=== PATIENT | female | born 1945 | race Caucasian/White ===

== ENCOUNTER → 2020-11-03 | Outpatient (CLI) | payer MEDICARE | LOC: LAB 07:50 | PROVIDERS: ATTEND Internal Medicine Interventional Cardiology | DX: Z20.822 Contact with and (suspected) exposure to COVID-19 (principal) | CPT/HCPCS: U0002 ==

== ENCOUNTER 2023-11-11 12:24 | Emergency (ER) | payer MEDICARE ==
[~2023-11-11] VITALS: Ht 157.5 cm; Wt 54.4 kg
[2023-11-11 12:43] VITALS: TEMP 98.5
[2023-11-11 14:14] LABS: BASOPHILS # (AUTO) 0.1 (0.0-0.1); BASOPHILS % 0.5 % (0.0-1.0); EOSINOPHILS % 0.4 % (0.0-6.0); HEMATOCRIT 31.2 % (34.2-44.1); HEMOGLOBIN 10.3 g/dL (12.0-16.0); LYMPHOCYTES # (AUTO) 1.9 (1.0-3.2); MEAN CORPUSCULAR HEMOGLOBIN 30.4 pg (28-32); MONOCYTES # (AUTO) 0.3 (0.2-0.8); MONOCYTES % 2.7 % (4.4-11.3); NEUTROPHILS # (AUTO) 8.2 (2.1-6.9); NEUTROPHILS % 77.6 % (38.7-80.0); PLATELET COUNT 283 x10e3/uL (140-360); RED BLOOD COUNT 3.39 x10e6/uL (3.6-5.1); RED CELL DISTRIBUTION WIDTH 13.1 % (11.7-14.4); WHITE BLOOD COUNT 10.57 x10e3/uL (4.8-10.8)
[2023-11-11 14:18] LABS: INR 0.85; PROTHROMBIN TIME 12.1 seconds (11.9-14.5)
[2023-11-11 14:19] LABS: PARTIAL THROMBOPLASTIN TIME 23.9 seconds (23.8-35.5)
[2023-11-11 14:28] LABS: ALBUMIN 3.1 g/dL (3.5-5.0); ANION GAP 14.9 mmol/L (8-16); BILIRUBIN,TOTAL 0.3 mg/dL (0.2-1.2); CREATININE, SERUM 1.27 mg/dL (0.57-1.11); MAGNESIUM 1.9 MG/DL (1.3-2.1); POTASSIUM 3.9 mmol/L (3.5-5.1); TOTAL PROTEIN 6.3 g/dL (6.5-8.1)
[2023-11-11 14:34] LABS: TROPONIN I 0.038 ng/mL (0-0.300)
[2023-11-11 15:30] VITALS: PULSE 69; RESP 18; O2SAT 98
== END 2023-11-11 17:32 | disposition home or self-care (01) ==
LOC: ER 12:30
DX: R00.2 Palpitations (principal); I49.1 Atrial premature depolarization; R42 Dizziness and giddiness; R53.83 Other fatigue; I10 Essential (primary) hypertension; I50.9 Heart failure, unspecified; N28.9 Disorder of kidney and ureter, unspecified
CPT/HCPCS: 36415; 71045; 80053; 82550; 83735; 83880; 84484; 85025; 85610; 85730; 93005; 99283